=== PATIENT | female | born 1990 | race Hispanic/Latino ===

== ENCOUNTER 2021-06-03 10:06 | Emergency (ER) | payer SELFPAY ==
[2021-06-03] MEDS ORDERED: LORazepam 2 MG/ML VIAL IM ONE (10:24)
--- NOTE | 2021-06-03 10:30 | Emergency Department Report ---
HPI - General Chief Complaint: Psych Time Seen by Provider: 06/03/21 10:17 - HPI HPI: EMS called to the scene where the patient is acting abnormally. The patient reports that she took about 12 tablets of unknown milligram iron pills to try to hurt herself. She feels depressed and has a history of major depression. She has tried hurting herself in the past. She had an episode of emesis but unsure if she vomited the pills she took. This happened just prior to arrival, the ingestion. She denies fever chills headache chest pain shortness of breath focal weakness or any other associated symptoms. She gave approximately 8 weeks prior to arrival vaginally and the state has her child. There is no compliance with any psychiatric meds. She admits to cocaine use prior to arrival. ED Past Medical Hx - Past Medical History Previous Medical History?: Yes Hx Psychiatric Treatment: Yes (BIPOLAR/DEPRESSION) - Surgical History Past Surgical History?: No - Social History Smoking Status: Current Every Day Smoker Substance Use Type: Cocaine ED Review of Systems ROS: Stated complaint: SUICIDAL Other details as noted in HPI Comment: All other systems reviewed and negative Physical Exam - Physical Exam Vital Signs: Vital Signs 06/03/21 10:09 Temperature 98.4 F Pulse Rate 84 Respiratory 16 Rate Blood Pressure 134/80 [Left] O2 Sat by Pulse 99 Oximetry Physical Exam: Physical Exam Constitutional: General: The patient is agitated with mannerisms consistent with sympathomimetic substance ingestion. Appearance: No diaphoresis. HENT: Head: Normocephalic. Eyes: Pupils: Pupils are equal, round, and reactive to light. Neck: Musculoskeletal: Normal range of motion. Cardiovascular: Rate and Rhythm: Normal rate and regular rhythm. Pulses: Intact distal pulses. Heart sounds: Normal heart sounds. No murmur. Pulmonary: Effort: No respiratory distress. Breath sounds: No wheezing or rales. Chest: Chest wall: No tenderness. Abdominal: General: There is no distension. Palpations: There is no mass. Tenderness: There is no abdominal tenderness. There is no guarding or rebound. Musculoskeletal: Normal range of motion. Skin: General: Skin is warm and dry. Neurological: Mental Status: Alert and oriented to person, place, and time. Psychiatric: Mood and Affect: The patient seems anxious with congruent affect Cognition and Memory: Memory normal. Judgment: Judgment normal. ED Course Vital Signs 06/03/21 10:09 Temperature 98.4 F Pulse Rate 84 Respiratory 16 Rate Blood Pressure 134/80 [Left] O2 Sat by Pulse 99 Oximetry - Reevaluation(s) Reevaluation #1: 06/03/21 13:09 The patient was evaluated by psychiatry who recommended inpatient management or evaluation. The patient is here by medically cleared for psychiatric admission. ED Medical Decision Making - Lab Data Result diagrams: 06/03/21 11:34 06/03/21 11:34 Critical care attestation.: If time is entered above; I have spent that time in minutes in the direct care of this critically ill patient, excluding procedure time. ED Disposition Clinical Impression: Suicidal behavior, Cocaine abuse Disposition: 30 STILL A PATIENT Is pt being admited?: Yes Does the pt Need Aspirin: No Condition: Stable Instructions: Substance Use Disorder and Mental Illness
[2021-06-03 12:14] LABS: Basophils % (Auto) 0.6 % (0.0-1.8); Eosinophils % (Auto) 0.7 % (0.0-4.3); Hematocrit 34.1 % (30.3-42.9); Hemoglobin 10.6 gm/dl (10.1-14.3); Lymphocytes # (Auto) 1.1 K/mm3 (1.2-5.4); Lymphocytes % (Auto) 15.1 % (13.4-35.0); Mean Corpuscular HGB Conc 31 % (30-34); Mean Corpuscular Volume 72 fl (79-97); Monocytes # (Auto) 0.3 K/mm3 (0.0-0.8); Monocytes % (Auto) 4.4 % (0.0-7.3); Platelet Count 341 K/mm3 (140-440); Red Blood Count 4.73 M/mm3 (3.65-5.03); Red Cell Distribution Width 17.4 % (13.2-15.2)
--- NOTE | 2021-06-03 12:32 | Consultation ---
History of Present Illness - Reason for Consult Consult date: 06/03/21 Reason for consult: SI - History of Present Psychiatric Illness HPI: EMS called to the scene where the patient is acting abnormally. The patient reports that she took about 12 tablets of unknown milligram iron pills to try to hurt herself. She feels depressed and has a history of major depression. She has tried hurting herself in the past. She had an episode of emesis but unsure if she vomited the pills she took. This happened just prior to arrival, the ingestion. She denies fever chills headache chest pain shortness of breath focal weakness or any other associated symptoms. She gave approximately 8 weeks prior to arrival vaginally and the state has her child. There is no compliance with any psychiatric meds. She admits to cocaine use prior to arrival. The patient was seen today. I was unable to engage the patient in the interview. She gave me her name as Hossein Trejo. I'm having to arouse her several times, but she doesn't not answer most questions. She says "I took some pills" and starts moving about. She fidgety, moving about, and difficult to understand. She appears to be impaired from drug use. PAST PSYCHIATRIC HISTORY Unable to assess PAST MEDICAL HISTORY: None reported Family Psychiatric History: None reported or documented SOCIAL HISTORY Unable to assess REVIEW OF SYSTEMS Unable to assess MENTAL STATUS EXAMINATION Unable to assess Assessment and Plan Intentional OD Cocaine Use Disorder with Substance Induced Mood Treatment Plan [address] 125mg po BID Vistaril 50mg po BID Trazodone 50mg po qhs Sitter: defer to primary Medical: Per primary Disposition: Recommend acute psychiatric inpatient treatment Will follow. Thanks. Case staffed with Dr. Valentine Medications and Allergies Allergies Allergy/AdvReac Type Severity Reaction Status Date / Time No Known Allergies Allergy Verified 06/03/21 10:12 Mental Status Exam - Vital signs Last Vital Signs Temp 97.2 F L 06/03/21 10:49 Pulse 99 H 06/03/21 10:49 Resp 18 06/03/21 10:49 BP 125/86 06/03/21 10:41 Pulse Ox 98 06/03/21 10:49 Results Result Diagrams: 06/03/21 11:34 Abnormal lab results 06/03/21 Range/Units 11:34 MCV 72 L (79-97) fl MCH 23 L (28-32) pg RDW 17.4 H (13.2-15.2) % Lymph # (Auto) 1.1 L (1.2-5.4) K/mm3 Seg Neutrophils % 79.2 H (40.0-70.0) % All other labs normal.
[2021-06-03 12:40] LABS: BUN/Creatinine Ratio 16; Blood Urea Nitrogen 13 mg/dL (7-17); Calcium 9.1 mg/dL (8.4-10.2); Hemolysis Index 4
[2021-06-03] MEDS: DIVALPROEX DR 125 MG TAB PO SCH ×2 (13:30→22:00)
[2021-06-03] MEDS ORDERED: traZODone 50 MG TAB PO SCH (22:00)
--- NOTE | 2021-06-04 09:08 | Progress Note ---
Subjective - Reason for Consult Consult date: 06/04/21 Reason for consult: took some pills - Chief Complaint Chief complaint: The patient was seen today. She is more talkative today than yesterday. The patient says she's feeling good, better. She admits to using Cocaine prior to coming in. She says she slept okay. The patient says she takes zoloft for depression. She denies SI/HI or hallucinations of any kind. She says she lives with her boyfriend. REVIEW OF SYSTEMS Constitutional: Negative for weight loss ENT: Negative for stridor Respiratory: Negative for cough or hemoptysis All other systems reviewed and are negative MENTAL STATUS EXAMINATION General Appearance and Behavior: Age appropriate, good hygiene, wearing appropriate clothes, fair eye contact, calm, cooperative, drowsy Cooperation: Participating/engaged, but Guarded Psychomotor Behavior: Psychomotor normal Mood: good, better Affect and affective range: congruent with stated mood Thought Process: goal directed Thought Content: None Speech: Normal tone and pace Suicidal Ideation: Denies Homicidal Ideation: Denies Hallucinations: Denies Delusions: None elicited Impulse Control: Limited Insight and Judgment: Limited insight and judgment Memory: Limited Attention: attentive Orientation: Alert, oriented Assessment and Plan Intentional OD Cocaine Use Disorder with Substance Induced Mood Treatment Plan d/c 1013 Zoloft 25mg po daily Depakote [address] 125mg po BID Vistaril 50mg po BID Trazodone 50mg po qhs Sitter: defer to primary Medical: Per primary Disposition: Do not Recommend acute psychiatric inpatient treatment. The patient understands that if SI/HI return she is to seek immediate assistance The inspector insulation to further discuss safety plan The patient to abstain from all illicit drug use She is to follow up with outpatient psych in 7 to 14 days upon discharge Will sign off. Thanks. Case staffed with Dr. Valentine Mental Status Exam - Vital signs Last Vital Signs Temp 98.5 F 06/04/21 02:12 Pulse 78 06/04/21 02:12 Resp 16 06/04/21 02:12 BP 114/65 06/04/21 02:12 Pulse Ox 96 06/04/21 02:12
[2021-06-04] MEDS: DIVALPROEX DR 125 MG TAB PO SCH (12:15)
[2021-06-04 12:43] VITALS: BP 124/80
== END 2021-06-04 12:42 | disposition home or self-care (01) ==
LOC: ED 10:06
DX: R45.851 Suicidal ideations (principal); F14.10 Cocaine abuse, uncomplicated; F31.9 Bipolar disorder, unspecified; Z20.822 Contact with and (suspected) exposure to COVID-19
CPT/HCPCS: 36415; 80048; 84703; 85025; 96372; 99284; J2060; Q0177; U0003; 80320; G0480